=== PATIENT | male | born 1990 | race Caucasian/White ===

== ENCOUNTER 2021-07-05 22:55 | Inpatient (IN) | payer OTHER ==
[2021-07-05 23:45] VITALS: BMI 19.8
[2021-07-05] MEDS ORDERED: MAGNESIUM HYDROX 2400MG/30ML ORAL SUSPENSION 30 ML CUP PO PRN (23:55)
[2021-07-05] MEDS ORDERED: MAG HYDROX/AL HYDROX/SIMETH 30 ML UNIT-DOSE CUP PO PRN (23:55)
[2021-07-05] MEDS ORDERED: ONDANSETRON *ODT* 4 MG TABLET SL PRN (23:55)
[2021-07-05] MEDS ORDERED: P-EPHED 60MG/TRIPROLIDI 2.5MG TABLET PO PRN (23:55)
[2021-07-05] MEDS ORDERED: BISMUTH SUBSALICYLATE 524 MG/30 ML PO PRN (23:55)
[2021-07-05] MEDS ORDERED: ACETAMINOPHEN 325 MG TABLET (FP) PO PRN (23:55)
[2021-07-05] MEDS ORDERED: NICOTINE POLACRILEX 2 MG GUM BUC PRN (23:55)
[2021-07-05] MEDS ORDERED: MENTHOL/PHENOL 1 EACH UD MM PRN (23:55)
[2021-07-05] MEDS ORDERED: LOPERAMIDE HCL 2 MG CAPSULE PO PRN (23:55)
[2021-07-05] MEDS ORDERED: guaiFENesin 200 MG/10 ML 10 ML UNIT-DOSE CUPS PO PRN (23:55)
[2021-07-05] MEDS ORDERED: MAGNESIUM CITRATE 300 ML BOTTLE PO PRN (23:55)
[2021-07-06] MEDS: hydrOXYzine PAMOATE 25 MG CAPSULE (FP) PO PRN ×3 (10:21→22:32)
[2021-07-06] MEDS: PRENATAL VITAMINS W/ FOLIC ACID TABLET (FP) PO SCH (10:22)
[2021-07-06] MEDS ORDERED: chlordiazePOXIDE HCL 25 MG CAPSULE PO PRN (11:28)
[2021-07-06 11:37] LABS: HEMATOCRIT 36.6 % (35.4-49); HEMOGLOBIN 12.5 GM/dL (11.7-16.9); MCH 33.3 pg (25.7-33.7); MCHC 34.1 g/dl (32.0-35.9); MEAN CELL VOLUME 97.6 fl (80-96); PLATELET COUNT 106 10^3/uL (134-434); RBC 3.75 M/mm3 (4.00-5.60); RDW 14.5 % (11.9-15.9); WHITE BLOOD COUNT 3.5 K/mm3 (4.0-10.0)
[2021-07-06 11:52] LABS: ALBUMIN 4.9 g/dl (3.4-5.0); BLOOD UREA NITROGEN 7.9 mg/dL (7-18); CALCIUM 8.7 mg/dL (8.5-10.1)
[2021-07-06 11:55] LABS: CREATININE 0.7 mg/dL (0.55-1.3)
[2021-07-06 11:57] LABS: TOT PROT 7.6 g/dl (6.4-8.2)
[2021-07-06] MEDS: NICOTINE 14 MG/24 HOURS TOPICAL PATCH TD SCH (12:14)
[2021-07-06] MEDS: chlordiazePOXIDE HCL 25 MG CAPSULE PO SCH ×3 (12:15→22:33)
[2021-07-06] MEDS: METHOCARBAMOL 500 MG TABLET PO PRN ×2 (14:57→22:34)
[2021-07-06] MEDS: NICOTINE 10 MG CARTRIDGE (INHALER) IH PRN (19:55)
[2021-07-06] MEDS: MELATONIN 5 MG TABLETS PO SCH (22:32)
[2021-07-06] MEDS: THIAMINE HCL 100 MG TABLET (FP) PO SCH (22:32)
[2021-07-07] MEDS: chlordiazePOXIDE HCL 25 MG CAPSULE PO SCH ×4 (06:13→22:07)
[2021-07-07] MEDS: NICOTINE 10 MG CARTRIDGE (INHALER) IH PRN ×4 (06:15→22:09)
[2021-07-07] MEDS: PRENATAL VITAMINS W/ FOLIC ACID TABLET (FP) PO SCH (10:21)
[2021-07-07] MEDS: NICOTINE 14 MG/24 HOURS TOPICAL PATCH TD SCH (10:23)
[2021-07-07] MEDS: hydrOXYzine PAMOATE 25 MG CAPSULE (FP) PO PRN (17:37)
[2021-07-07] MEDS: METHOCARBAMOL 500 MG TABLET PO PRN (22:07)
[2021-07-07] MEDS: THIAMINE HCL 100 MG TABLET (FP) PO SCH (22:07)
[2021-07-07] MEDS: MELATONIN 5 MG TABLETS PO SCH (22:07)
[2021-07-08] MEDS: chlordiazePOXIDE HCL 10 MG CAPSULE PO SCH ×4 (05:44→22:03)
[2021-07-08] MEDS: PRENATAL VITAMINS W/ FOLIC ACID TABLET (FP) PO SCH (10:15)
[2021-07-08] MEDS: NICOTINE 14 MG/24 HOURS TOPICAL PATCH TD SCH (10:15)
[2021-07-08] MEDS: hydrOXYzine PAMOATE 25 MG CAPSULE (FP) PO PRN (17:30)
[2021-07-08] MEDS: NICOTINE 10 MG CARTRIDGE (INHALER) IH PRN (17:31)
[2021-07-08] MEDS: IBUPROFEN 400 MG TABLET (FP) PO PRN (19:12)
[2021-07-08] MEDS: ACETAMINOPHEN 325 MG TABLET (FP) PO PRN (22:03)
[2021-07-08] MEDS: THIAMINE HCL 100 MG TABLET (FP) PO SCH (22:05)
[2021-07-08] MEDS: MELATONIN 5 MG TABLETS PO SCH (22:05)
[2021-07-09] MEDS ORDERED: chlordiazePOXIDE HCL 10 MG CAPSULE PO PRN
[2021-07-09] MEDS: chlordiazePOXIDE HCL 10 MG CAPSULE PO SCH ×2 (05:46→17:53)
[2021-07-09] MEDS: PRENATAL VITAMINS W/ FOLIC ACID TABLET (FP) PO SCH (10:12)
[2021-07-09] MEDS: NICOTINE 14 MG/24 HOURS TOPICAL PATCH TD SCH (10:12)
[2021-07-09] MEDS: IBUPROFEN 400 MG TABLET (FP) PO PRN (10:14)
[2021-07-09] MEDS: hydrOXYzine PAMOATE 25 MG CAPSULE (FP) PO PRN ×2 (10:14→14:35)
[2021-07-09] MEDS: NICOTINE 10 MG CARTRIDGE (INHALER) IH PRN ×3 (14:37→22:27)
[2021-07-09] MEDS: THIAMINE HCL 100 MG TABLET (FP) PO SCH (22:21)
[2021-07-09] MEDS: MELATONIN 5 MG TABLETS PO SCH (22:21)
[2021-07-09] MEDS: METHOCARBAMOL 500 MG TABLET PO PRN (22:22)
[2021-07-09] MEDS: ACETAMINOPHEN 325 MG TABLET (FP) PO PRN (22:22)
[2021-07-10] MEDS ORDERED: chlordiazePOXIDE HCL 10 MG CAPSULE PO ONE (05:00)
[2021-07-10] MEDS: NICOTINE 10 MG CARTRIDGE (INHALER) IH PRN (06:11)
[2021-07-10 08:30] VITALS: BP 129/76; PULSE 98; TEMP 96.7
[2021-07-10] MEDS: NICOTINE 14 MG/24 HOURS TOPICAL PATCH TD SCH (09:59)
[2021-07-10] MEDS: PRENATAL VITAMINS W/ FOLIC ACID TABLET (FP) PO SCH (09:59)
== END 2021-07-10 10:00 | disposition home or self-care (01) | DRG 775 ==
LOC: YASAS 22:55 → Y3N 07-06 03:15
PROVIDERS: ADMIT Allergy & Immunology; ATTEND Allergy & Immunology
PROC: HZ2ZZZZ Detoxification Services for Substance Abuse Treatment (ICD-10-PCS; principal; 2021-07-06)
DX: F10.230 Alcohol dependence with withdrawal, uncomplicated (principal); F12.20 Cannabis dependence, uncomplicated; F17.210 Nicotine dependence, cigarettes, uncomplicated; F32.A Depression, unspecified; I10 Essential (primary) hypertension; Z56.0 Unemployment, unspecified
CPT/HCPCS: 36415; 80053; 85027; 86780; 87811; 93005; 93010; C9803-CS; Q0162; U0003; U0005

== ENCOUNTER 2023-06-14 19:40 | Inpatient (IN) | payer OTHER ==
[2023-06-14] MEDS ORDERED: METOPROLOL TARTRATE 25 MG TABLET (FP) ONE (20:33)
[2023-06-14] MEDS: METOPROLOL TARTRATE 50 MG TABLET (FP) PO ONE (20:34)
[2023-06-14 20:40] VITALS: BMI 19.8
[2023-06-14] MEDS ORDERED: chlordiazePOXIDE HCL 25 MG CAPSULE PO PRN (20:44)
[2023-06-14] MEDS ORDERED: LOPERAMIDE HCL 2 MG CAPSULE PO PRN (20:53)
[2023-06-14] MEDS ORDERED: NICOTINE POLACRILEX 2 MG GUM BUC PRN (20:53)
[2023-06-14] MEDS ORDERED: BENZOCAINE/MENTHOL (CHLORASEPTIC ) LOZENGE MM PRN (20:53)
[2023-06-14] MEDS ORDERED: NICOTINE POLACRILEX 2 MG LOZENGE BC PRN (20:53)
[2023-06-14] MEDS ORDERED: MAG HYDROX/AL HYDROX/SIMETH 30 ML UNIT-DOSE CUP PO PRN (20:53)
[2023-06-14] MEDS ORDERED: guaiFENesin 600 MG TABLET.ER (FP) PO PRN (20:53)
[2023-06-14] MEDS ORDERED: ONDANSETRON *ODT* 4 MG TABLET SL PRN (20:53)
[2023-06-14] MEDS ORDERED: MAGNESIUM HYDROX 2400MG/30ML ORAL SUSPENSION 30 ML CUP PO PRN (20:53)
[2023-06-14] MEDS ORDERED: POLYETHYLENE GLYCOL (HEALTHYLAX) 3350 17 GM PACKET PO PRN (20:53)
[2023-06-14] MEDS ORDERED: ACETAMINOPHEN 325 MG TABLET (FP) PO PRN (20:53)
[2023-06-14] MEDS ORDERED: BENZONATATE 200 MG CAPSULE PO PRN (20:53)
[2023-06-14] MEDS ORDERED: BISMUTH SUBSALICYLATE 524 MG/30 ML PO PRN (20:53)
[2023-06-14] MEDS ORDERED: DICYCLOMINE HCL 10 MG CAPSULE PO PRN (20:53)
[2023-06-14] MEDS ORDERED: IBUPROFEN 400 MG TABLET (FP) PO PRN (20:53)
[2023-06-14] MEDS ORDERED: P-EPHED 60MG/TRIPROLIDI 2.5MG TABLET PO PRN (20:53)
[2023-06-14] MEDS ORDERED: IBUPROFEN 600 MG TABLET (FP) PO PRN (20:53)
[2023-06-14] MEDS: METOPROLOL TARTRATE 25 MG TABLET (FP) PO ONE (21:13)
[2023-06-14] MEDS ORDERED: chlordiazePOXIDE HCL 25 MG CAPSULE ONE (21:16)
[2023-06-14] MEDS ORDERED: levETIRAcetam 500 MG TABLET (FP) PO ONE (21:17)
[2023-06-14] MEDS: levETIRAcetam 500 MG TABLET (FP) PO SCH (21:18)
[2023-06-14] MEDS: chlordiazePOXIDE HCL 25 MG CAPSULE PO ONE (21:18)
[2023-06-14] MEDS: MELATONIN 5 MG TABLETS PO SCH (22:46)
[2023-06-14] MEDS: THIAMINE HCL 100 MG TABLET (FP) PO SCH (22:46)
[2023-06-14] MEDS: chlordiazePOXIDE HCL 25 MG CAPSULE PO SCH (23:05)
[2023-06-15] MEDS: PRENATAL VITAMINS W/ FOLIC ACID TABLET (FP) PO SCH (10:25)
[2023-06-15 10:50] LABS: HEMATOCRIT 38.8 % (35.4-49); MCH 32.2 pg (25.7-33.7); MCHC 33.6 g/dl (32.0-35.9); MEAN CELL VOLUME 95.7 fl (80-96); PLATELET COUNT 362 10^3/uL (134-434); RBC 4.05 M/mm3 (4.00-5.60); RDW 16.4 % (11.9-15.9); WHITE BLOOD COUNT 5.1 K/mm3 (4.0-10.0)
[2023-06-15 11:53] LABS: ALBUMIN 3.8 g/dl (3.4-5.0); CALCIUM 8.3 mg/dL (8.5-10.1)
[2023-06-15 11:54] LABS: BLOOD UREA NITROGEN 14.4 mg/dL (7-18)
[2023-06-15 11:55] LABS: CREATININE 0.9 mg/dL (0.55-1.3)
[2023-06-15 11:58] LABS: BILIRUBIN,TOTAL 0.3 mg/dL (0.2-1); TOT PROT 6.8 g/dl (6.4-8.2)
[2023-06-15] MEDS: hydrOXYzine PAMOATE 25 MG CAPSULE (FP) PO PRN (22:06)
[2023-06-16] MEDS: chlordiazePOXIDE HCL 25 MG CAPSULE PO SCH (05:45)
[2023-06-16] MEDS: ESCITALOPRAM OXALATE 20 MG TABLET PO SCH (10:13)
[2023-06-16] MEDS: METHOCARBAMOL 500 MG TABLET PO PRN (22:27)
[2023-06-17] MEDS ORDERED: chlordiazePOXIDE HCL 10 MG CAPSULE PO PRN
[2023-06-17] MEDS: chlordiazePOXIDE HCL 10 MG CAPSULE PO SCH (05:34)
[2023-06-18] MEDS: chlordiazePOXIDE HCL 10 MG CAPSULE PO SCH (05:19)
[2023-06-19] MEDS: chlordiazePOXIDE HCL 10 MG CAPSULE PO ONE (05:32)
[2023-06-19 09:42] VITALS: BP 122/65; PULSE 72; RESP 16; TEMP 98
== END 2023-06-19 11:04 | disposition other institution (70) | DRG 775 ==
LOC: YASAS 19:40 → Y3N 06-15 02:06
PROVIDERS: ADMIT Allergy & Immunology; ATTEND Surgery
PROC: HZ2ZZZZ Detoxification Services for Substance Abuse Treatment (ICD-10-PCS; principal; 2023-06-15)
DX: F10.230 Alcohol dependence with withdrawal, uncomplicated (principal); F17.210 Nicotine dependence, cigarettes, uncomplicated; F60.3 Borderline personality disorder; I10 Essential (primary) hypertension; Z86.69 Personal history of other diseases of the nervous system and sense organs
CPT/HCPCS: 36415; 80053; 85027; 86780; 87635; 93005; 93010